=== PATIENT | male | born 1950 | race Caucasian/White ===

== ENCOUNTER → 2024-09-01 | Day surgery (SDC) | payer OTHER ==
[~2024-09-01] MED LIST: Propofol 200 MG/20 ML SDV ONE; Sodium Chloride 0.9% 10 ML Syringe FLUSH PRN; Sodium Chloride 0.9% 10 ML Syringe FLUSH SCH
[2024-09-01] MEDS: Lactated Ringers 1,000 ML IV SCH (07:55)
== END | disposition home or self-care (01) ==
LOC: JD.SDS 07:31
PROVIDERS: ATTEND Surgery
DX: Z12.11 Encounter for screening for malignant neoplasm of colon (principal); D12.0 Benign neoplasm of cecum; D12.2 Benign neoplasm of ascending colon; D12.3 Benign neoplasm of transverse colon; K57.30 Diverticulosis of large intestine without perforation or abscess without bleeding; I10 Essential (primary) hypertension; E78.00 Pure hypercholesterolemia, unspecified; Z86.0101 Personal history of adenomatous and serrated colon polyps; Z88.8 Allergy status to other drugs, medicaments and biological substances
CPT/HCPCS: 45385; J2704; J7120; 00811; 99140